=== PATIENT | female | born 1975 | race Hispanic/Latino ===

== ENCOUNTER 2018-08-22 10:49 | Outpatient (CLI) | payer OTHER ==
--- NOTE | 2018-09-18 15:43 | MMO ---
SCREENING MAMMOGRAM 08/22/18 COMPARISON: None. HISTORY: Screening mammography. FINDINGS: Patient's mammogram is interpreted with the assistance of computer aided detection. The breast parenc hyma is heterogeneously dense which limits mammographic sensitivity. There is a subtle area of asymmetric density identified at the 12 o'clock position of the right breas t. There is an oval mass measuring approximately 1.4 cm within the medial aspect of the left breast. IMPRESSION: BIRADS 0: Incomplete: Need Additional Imaging Evaluation and/or Prior Mammograms for Comparison Bilateral diagnostic mammography is advised to evaluate the asymmetric density of the 12 o'clock posi tion of the right breast and the oval mass within the medial left breast. Focused ultrasound may be b eneficial at the time of bilateral diagnostic mammography. POS: [facility]
== END 2018-08-22 10:50 | disposition home or self-care (01) ==
LOC: SCSMAMMO 10:49
PROVIDERS: ATTEND Family Medicine
DX: Z12.31 Encounter for screening mammogram for malignant neoplasm of breast (principal)
CPT/HCPCS: 77067

== ENCOUNTER 2018-10-07 14:14 | Outpatient (CLI) | payer OTHER ==
--- NOTE | 2018-10-07 17:21 | ULT ---
LIMITED LEFT BREAST ULTRASOUND: Date: 10/07/18 PROVIDED CLINICAL HISTORY: Abnormal mammogram. FINDINGS: Limited sonographic interrogation of the inner left breast was performed in the region of mammographi c concern. No ultrasound correlate for the mammographic abnormality is evident. There is a very small , approximately 3.0 mm, focus of diminished echogenicity at the 9 o'clock position of the left breast which is too small to definitively characterize but likely reflects a small cyst. IMPRESSION: BI-RADS Category 3 - probably benign findings. 6 month follow-up left mammogram recommended for findi ngs seen only by mammography and ultrasound for findings seen only by sonography. The facility will notify patient of need for additional imaging services. POS: [facility]
== END 2018-10-07 14:15 | disposition home or self-care (01) ==
LOC: BICMAMMO 14:14
PROVIDERS: ATTEND Family Medicine
DX: N63.24 Unspecified lump in the left breast, lower inner quadrant (principal); R92.2 Inconclusive mammogram
CPT/HCPCS: 77066; G0279

== ENCOUNTER 2019-05-15 13:51 | Outpatient (CLI) | payer OTHER ==
--- NOTE | 2019-05-15 14:37 | MMO ---
Left Breast MAMMO Unilat Diag DDI LT+FAVIOLA. CLINICAL HISTORY: Patient is 43 years old and is seen for follow-up at short-interval from prior study. The patient has no family history of breast cancer. The patient has no personal history of cancer. VIEWS: The views performed were: left craniocaudal with tomosynthesis; left mediolateral oblique with tomosynthesis; and left mediolateral with tomosynthesis. FILMS COMPARED: The present examination has been compared to prior imaging studies performed at [facility] on 08/22/2018, and at [facility] on 10/07/2018. MAMMOGRAM FINDINGS: The breast is heterogeneously dense, which could obscure a lesion on mammography. There is a stable oval mass with circumscribed margins seen in the inner region of the left breast. IMPRESSION: STABLE MASS IN THE LEFT BREAST IS PROBABLY BENIGN. FOLLOW-UP IN 6 MONTHS IS RECOMMENDED. THE RESULTS OF THIS EXAM WERE SENT TO THE PATIENT. ACR BI-RADS Category 3 - Probably benign finding - short interval follow-up suggested. [facility] will notify the patient of the need for additional imaging services. MAMMOGRAPHY NOTE: 1. A negative mammogram report should not delay a biopsy if a dominant of clinically suspicious mass is present. 2. Approximately 10% to 15% of breast cancers are not detected by mammography. 3. Adenosis and dense breasts may obscure an underlying neoplasm. Reported by: JANEL NATION MD Electonically Signed: [id number]
== END 2019-05-15 13:52 | disposition home or self-care (01) ==
LOC: BICMAMMO 13:51
PROVIDERS: ATTEND Family Medicine
DX: R92.8 Other abnormal and inconclusive findings on diagnostic imaging of breast (principal); N63.20 Unspecified lump in the left breast, unspecified quadrant
CPT/HCPCS: G0279

== ENCOUNTER 2019-06-27 12:45 | Outpatient (CLI) | payer OTHER ==
--- NOTE | 2019-06-27 13:47 | ULT ---
PELVIC ULTRASOUND: HISTORY: Heavy periods. FINDINGS: Real-time imaging of the pelvis was obtained was obtained both transabdominally as well as with an en dovaginal probe. This shows an enlarged uterus measuring approximately 6.3 x 7.2 x 15.2 cm in size. There are multiple uterine fibroids identified. The largest is approximately 5 x 6 cm. Two smaller fibroids are in the 2-3 cm range. Endometrium is 6 mm. There is an approximately 2.7 x 3.3 cm right ovarian cyst. The left ovary is normal. No free fluid. DOPPLER EVALUATION WITH SPECTRAL ANALYSIS: Normal flow is shown to both adnexa. IMPRESSION: Enlarged fibromatous uterus. POS: [facility]
== END 2019-06-27 12:46 | disposition home or self-care (01) ==
LOC: SCSULT 12:45
PROVIDERS: ATTEND Family Medicine
DX: N92.0 Excessive and frequent menstruation with regular cycle (principal); N85.2 Hypertrophy of uterus
CPT/HCPCS: 76856

== ENCOUNTER 2019-12-03 09:35 | Outpatient (CLI) | payer OTHER ==
--- NOTE | 2019-12-03 10:33 | MMO ---
Bilateral MAMMO Bilat Diag DDI+FAVIOLA. CLINICAL HISTORY: Patient is 44 years old and is seen for diagnostic exam. The patient has the following family history of breast cancer: half sister, at age 32, malignant (generic). The patient has no personal history of cancer. VIEWS: The views performed were: bilateral craniocaudal with tomosynthesis; bilateral mediolateral oblique with tomosynthesis; and bilateral mediolateral with tomosynthesis. FILMS COMPARED: The present examination has been compared to prior imaging studies performed at [facility] on 08/22/2018, and at [facility] on 10/07/2018, 05/15/2019 and 12/03/2019. This study has been interpreted with the assistance of computer-aided detection. MAMMOGRAM FINDINGS: The breasts are heterogeneously dense, which could obscure a lesion on mammography. There is a stable mass seen in the inner region of the left breast. In the right breast, there are no suspicious masses, calcifications or areas of architectural distortion. IMPRESSION: STABLE MASS IN THE LEFT BREAST IS PROBABLY BENIGN. FOLLOW-UP IN 6 MONTHS IS RECOMMENDED. THE RESULTS OF THIS EXAM WERE SENT TO THE PATIENT. ACR BI-RADS Category 3 - Probably benign finding - short interval follow-up suggested. [facility] will notify the patient of the need for additional imaging services. MAMMOGRAPHY NOTE: 1. A negative mammogram report should not delay a biopsy if a dominant of clinically suspicious mass is present. 2. Approximately 10% to 15% of breast cancers are not detected by mammography. 3. Adenosis and dense breasts may obscure an underlying neoplasm. Reported by: CARLIN REYES MD Electonically Signed: [id number]
--- NOTE | 2019-12-03 10:52 | ULT ---
LEFT BREAST ULTRASOUND: Date: 12/03/2019 HISTORY: Follow-up exam. FINDINGS: Comparison made with ultrasound of 10/07/2018 and mammogram from today. The probable small, 3.0 mm, cyst at the 9 o'clock position of the left breast seen on the previous st udy, 3.0 cm from the nipple, is no longer identified on the current exam. At the 10 o'clock position of the left breast, 2.0 cm from the nipple, is a 1.0 x 0.6 cm hypoechoic n onshadowing solid nodule likely corresponding to the finding on the mammogram. IMPRESSION: BI-RADS Category 3 - Probably benign findings. A 6 month follow-up left diagnostic mammogram and left breast ultrasound is recommended. The facility will notify patient of need for additional imaging services.
== END 2019-12-03 09:36 | disposition home or self-care (01) ==
LOC: BICMAMMO 09:35
PROVIDERS: ATTEND Family Medicine
DX: R92.8 Other abnormal and inconclusive findings on diagnostic imaging of breast (principal); N63.20 Unspecified lump in the left breast, unspecified quadrant
CPT/HCPCS: 77066; G0279

== ENCOUNTER 2020-09-30 09:23 | Outpatient (CLI) | payer OTHER ==
--- NOTE | 2020-09-30 10:43 | MMO ---
Bilateral MAMMO Bilat Diag DDI+FAVIOLA. CLINICAL HISTORY: Patient is 45 years old and is seen for diagnostic exam. The patient has the following family history of breast cancer: half sister, at age 32, malignant (generic). The patient has no personal history of cancer. VIEWS: The views performed were: bilateral craniocaudal with tomosynthesis; bilateral mediolateral oblique with tomosynthesis; and bilateral mediolateral with tomosynthesis. FILMS COMPARED: The present examination has been compared to prior imaging studies performed at [facility] on 05/15/2019, 12/03/2019 and 09/30/2020. This study has been interpreted with the assistance of computer-aided detection. MAMMOGRAM FINDINGS: The breasts are heterogeneously dense, which could obscure a lesion on mammography. There is an oval mass measuring 11 millimeters seen in the inner region of the left breast. Finding remains unchanged from the prior study. There are no suspicious masses, suspicious calcifications, or new areas of architectural distortion. IMPRESSION: THERE IS NO MAMMOGRAPHIC EVIDENCE OF MALIGNANCY. A ROUTINE FOLLOW-UP MAMMOGRAM IN 1 YEAR IS RECOMMENDED. THE RESULTS OF THIS EXAM WERE SENT TO THE PATIENT. ACR BI-RADS Category 2 - Benign finding MAMMOGRAPHY NOTE: 1. A negative mammogram report should not delay a biopsy if a dominant of clinically suspicious mass is present. 2. Approximately 10% to 15% of breast cancers are not detected by mammography. 3. Adenosis and dense breasts may obscure an underlying neoplasm. Reported by: SONA FLETCHER MD Electonically Signed: [id number]
--- NOTE | 2020-09-30 11:57 | ULT ---
Ultrasound left breast limited: 09/30/2020 HISTORY: 45-year-old female follow-up left breast nodule. TECHNIQUE: Focused ultrasound of left inner breast IMPRESSION: Ultrasound of 12/03/2019 FINDINGS: At the 10:00 position, 2 cm from the nipple, again noted is the oval hypoechoic lesion, which may or may not be a cyst (favored to be a cyst) measuring approximately 1.2 x 0.6 x 0.6 cm. It is unchanged since the prior ultrasound. It probably corresponds to the similarly shaped mammographic no dule, which, in retrospect, has been stable for 2 years. IMPRESSION: 1.) BI-RADS 2-benign findings. 2) recommend routine bilateral screening mammogram in one year.
== END 2020-09-30 09:24 | disposition home or self-care (01) ==
LOC: BICMAMMO 09:23
PROVIDERS: ATTEND Family Medicine
DX: R92.8 Other abnormal and inconclusive findings on diagnostic imaging of breast (principal)
CPT/HCPCS: 77066; G0279

== ENCOUNTER 2021-06-15 15:21 | Outpatient (CLI) | payer OTHER | END 2021-06-15 15:22 | disposition home or self-care (01) | LOC: BICRAD 15:21 | PROVIDERS: ATTEND Chiropractor | DX: M54.5 Low back pain (principal); G89.29 Other chronic pain | CPT/HCPCS: 72100 ==